=== PATIENT | female | born 1945 | race Caucasian/White ===

== ENCOUNTER → 2016-05-26 | Outpatient (CLI) | payer MEDICARE, BC ==
[2016-05-26 10:02] LABS: Basophils # (A) 0.1 k/uL (0-0.2); Basophils % (A) 2 %; CH 31.3; CHCM 33.4; Eosinophils # (A) 0.2 k/uL (0-0.7); Eosinophils % (A) 6 %; HCT 43.4 % (34.0-46.0); HGB 14.4 gm/dL (11.4-16.0); Luc # (Auto) 0.09; Luc % (Auto) 2; Lymphocytes # (A) 0.7 k/uL (1.0-4.8); Lymphocytes % (A) 19 %; MCH 31.2 pg (25.0-35.0); MCHC 33.1 g/dL (31.0-37.0); MCV 94.2 fL (80.0-100.0); Mean Platelet Volume 7.5; Monocytes # (A) 0.3 k/uL (0-1.0); Monocytes % (A) 7 %; Neutrophils # (A) 2.6 k/uL (1.3-7.7); Neutrophils % (A) 65 %; RBC 4.61 m/uL (3.80-5.40); RDW 12.3 % (11.5-15.5)
[2016-05-26 10:15] LABS: Appearance,Urine Clear (Clear); Bilirubin,Urine Negative (Negative); Glucose,Urine (UA) Negative (Negative); Ketones,Urine Negative (Negative); Leukocyte Esterase,Urine Small (Negative); Nitrite,Urine Negative (Negative); PH, Urine 7.5 (5.0-8.0); Particle Count 949; Protein,Urine Negative (Negative); RBC,Urine 21 /hpf (0-5); Specific Gravity,Urine 1.009 (1.001-1.035); UA Billing (MACRO vs. MICRO) MICRO; Urobilinogen,Urine <2.0 mg/dL (<2.0); WBC,Urine 1 /hpf (0-5)
[2016-05-26 10:31] LABS: ALT 32 U/L (9-52); AST 25 U/L (14-36); Alkaline Phosphatase 59 U/L (38-126); Anion Gap 10 mmol/L; Blood Urea Nitrogen 18 mg/dL (7-17); Calcium 9.6 mg/dL (8.4-10.2); Carbon Dioxide 30 mmol/L (22-30); Chloride 106 mmol/L (98-107); Cholesterol 195 mg/dL (<200); Glucose 84 mg/dL (74-99); HDL Cholesterol 62 mg/dL (40-60); Non-African American GFR(MDRD) 51 (>60 ml/min/1.73 sqM); Potassium 4.7 mmol/L (3.5-5.1); Sodium 146 mmol/L (137-145); Total Bilirubin 0.6 mg/dL (0.2-1.3); Total Protein 7.2 g/dL (6.3-8.2); Triglycerides 128 mg/dL (<150)
== END | disposition home or self-care (01) ==
LOC: LABWHC1 09:31
PROVIDERS: ATTEND Family Medicine
DX: E78.5 Hyperlipidemia, unspecified (principal); E55.9 Vitamin D deficiency, unspecified; I10 Essential (primary) hypertension
CPT/HCPCS: 36415; 80053; 80061; 81001; 82306; 85025

== ENCOUNTER 2016-06-19 11:53 | Emergency (ER) | payer MEDICARE, BC ==
--- NOTE | 2016-06-19 13:19 | ED ---
General Adult HPI - General Chief complaint: Skin/Abscess/Foreign Body Stated complaint: RT RING FINGER SWELLING Time Seen by Provider: 06/19/16 13:05 Source: patient, RN notes reviewed Mode of arrival: ambulatory Limitations: no limitations - History of Present Illness Initial comments: Patient is a 71-year-old female presents to the emergency room for evaluation of right ring finger swelling. Patient states that she punctured her finger while moving a cactus about 10 days ago. Patient states she's not sure where she punctured her finger. Patient states for the past 4 or 5 days her right ring finger began swelling. Patient denies any injury besides the possible puncture wound. Patient denies any visible puncture wound. Patient denies numbness or tingling in the tip of her finger. Patient states she still has full range of motion. Patient states she is mostly having pain at her PIP joint. Patient denies any fevers or chills. Patient denies any other complaints at this time. - Related Data Previous Rx's Medication Instructions Recorded Cephalexin [Keflex] 500 mg PO Q6HR 7 Days 06/19/16 Allergies Allergy/AdvReac Type Severity Reaction Status Date / Time Penicillins Allergy Unknown Verified 06/19/16 12:48 Sulfa (Sulfonamide Allergy Unknown Verified 06/19/16 12:48 Antibiotics) Review of Systems ROS Statement: Those systems with pertinent positive or pertinent negative responses have been documented in the HPI. ROS Other: All systems not noted in ROS Statement are negative. Past Medical History Past Medical History: Atrial Fibrillation History of Any Multi-Drug Resistant Organisms: None Reported Past Surgical History: Pacemaker Past Psychological History: No Psychological Hx Reported Smoking Status: Never smoker Past Alcohol Use History: None Reported Past Drug Use History: None Reported General Exam - General Exam Comments Initial Comments: Sitting in exam room in no acute distress. Limitations: no limitations General appearance: alert, in no apparent distress Head exam: Present: atraumatic, normocephalic, normal inspection Eye exam: Present: normal appearance ENT exam: Present: normal exam Neck exam: Present: normal inspection Respiratory exam: Present: normal lung sounds bilaterally. Absent: respiratory distress Cardiovascular Exam: Present: regular rate, normal rhythm, normal heart sounds Right Hand Wrist exam: Present: full ROM, tenderness (PIP joint of the left fourth digit), swelling (Swelling at the PIP joint of the right fourth digit with slight erythema ) Neuro motor exam: Present: wrist extension intact, thumb opposition intact, thumb IP flexion intact, thumb adduction intact, fingers 2-5 abduction intact Vascular: Present: normal capillary refill (Capillary refill less than 2 seconds ), radial pulse (2+), ulnar pulse (2+) Back exam: Present: normal inspection Neurological exam: Present: alert, oriented X3, CN II-XII intact, normal gait Psychiatric exam: Present: normal affect, normal mood Skin exam: Present: warm, dry, intact, normal color. Absent: rash Course Vital Signs 06/19/16 06/19/16 12:45 14:03 Temperature 98.0 F 97.8 F Pulse Rate 59 L 87 Respiratory 18 16 Rate Blood Pressure 129/58 138/87 O2 Sat by Pulse 100 100 Oximetry Medical Decision Making - Medical Decision Making Patient is a 71-year-old female presents to the emergency room for evaluation of right fourth digit swelling and pain. Right hand x-ray shows no foreign bodies or fractures/dislocations. Patient does have some erythema overlying the PIP joint along with the swelling. Will place patient on Keflex for possible cellulitis and have patient follow-up with her primary care provider or workers compensation claims specialist for further evaluation. Patient states she understands everything that was discussed with her. Return parameters discussed. Case discussed with Dr. Galaviz. - Radiology Data Radiology results: report reviewed, image reviewed Disposition Clinical Impression: Finger joint swelling Disposition: HOME SELF-CARE Condition: Good Instructions: Swollen Joint (ED) Additional Instructions: Take antibiotics as directed. Please follow up with primary care provider or workers compensation claims specialist for reevaluation. Take Tylenol or Motrin as needed for pain. If any new symptom arises or symptoms worsen, return to ER as soon as possible. Prescriptions: Cephalexin [Keflex] 500 mg PO Q6HR 7 Days Referrals: Charleen Ford MD [Primary Care Provider] - 1-2 days Joey Prado MD [Medical Doctor] - 1-2 days Time of Disposition: 13:52
--- NOTE | 2016-06-19 13:32 | XR ---
EXAMINATION TYPE: XR hand complete RT DATE OF EXAM: 06/19/2016 1:21 PM CLINICAL HISTORY: Pain and swelling left ring finger after possible calculus injury. TECHNIQUE: Frontal, lateral and oblique images of the left hand are obtained. COMPARISON: None. FINDINGS: There is no acute fracture/dislocation evident in the left hand. Mild joint space loss thr oughout the phalanges is present. Mild to moderate focal soft tissue swelling centered at level of t he fourth PIP joint is noted. No obvious radiodense foreign body is present. IMPRESSION: Mild to moderate soft tissue swelling centered at fourth PIP joint without fracture or di slocation or obvious suspicious radiodense foreign body seen.
[2016-06-19 14:03] VITALS: BP 138/87; PULSE 87; RESP 16; TEMP 97.8
== END 2016-06-19 14:03 | disposition home or self-care (01) ==
LOC: EC 11:53
DX: M25.441 Effusion, right hand (principal); I48.91 Unspecified atrial fibrillation; Z95.0 Presence of cardiac pacemaker; Z88.0 Allergy status to penicillin; Z88.2 Allergy status to sulfonamides
CPT/HCPCS: 99283

== ENCOUNTER → 2016-08-25 | Outpatient (CLI) | payer MEDICARE, BC ==
--- NOTE | 2016-08-26 12:43 | MM ---
Reason for exam: screening (asymptomatic). Last mammogram was performed 1 year and 1 month ago. History: Patient is postmenopausal. Took estrogen for 34 years beginning at age 34. Physical Findings: A clinical breast exam by your physician is recommended on an annual basis and results should be correlated with mammographic findings. MG 3D Screening Mammo W/Cad Bilateral CC and MLO view(s) were taken. Prior study comparison: August 03, 2015, bilateral MG screening mammo w CAD. July 29, 2014, bilateral MG screening mammo w CAD. June 24, 2011, bilateral digital screening mammo w/CAD. There are scattered fibroglandular densities. Generator device over the left pectoral. No significant changes when compared with prior studies. ASSESSMENT: Negative, BI-RAD 1 RECOMMENDATION: Routine screening mammogram of both breasts in 1 year.
== END | disposition home or self-care (01) ==
LOC: RADMAMWWP 08:40
PROVIDERS: ATTEND Family Medicine
DX: Z12.31 Encounter for screening mammogram for malignant neoplasm of breast (principal)
CPT/HCPCS: 77063; G0202

== ENCOUNTER → 2017-02-04 | Outpatient (CLI) | payer MEDICARE, BC ==
[2017-02-04 09:42] LABS: CH 31.1; CHCM 32.1; HCT 46.7 % (34.0-46.0); HDW 2.51; HGB 15.1 gm/dL (11.4-16.0); MCH 31.4 pg (25.0-35.0); MCHC 32.4 g/dL (31.0-37.0); MCV 97.1 fL (80.0-100.0); Mean Platelet Volume 8.3; RBC 4.81 m/uL (3.80-5.40); RDW 12.5 % (11.5-15.5); WBC 4.3 k/uL (3.8-10.6)
[2017-02-04 09:48] LABS: Anion Gap 9 mmol/L; Blood Urea Nitrogen 24 mg/dL (7-17); Calcium 9.6 mg/dL (8.4-10.2); Carbon Dioxide 27 mmol/L (22-30); Chloride 106 mmol/L (98-107); Glucose 97 mg/dL (74-99); Non-African American GFR(MDRD) 53 (>60 ml/min/1.73 sqM); Potassium 4.7 mmol/L (3.5-5.1); Sodium 142 mmol/L (137-145)
== END | disposition home or self-care (01) ==
LOC: LABWHC1 08:30
PROVIDERS: ATTEND Internal Medicine Clinical Cardiac Electrophysiology
DX: I48.0 Paroxysmal atrial fibrillation (principal)
CPT/HCPCS: 36415; 80048; 85027

== ENCOUNTER 2017-02-07 11:25 | Day surgery (SDC) | payer MEDICARE, BC ==
[2017-02-03 17:49] VITALS: BMI 24.0
[~2017-02-07 11:25] MED LIST: SODIUM CHLORIDE 0.9% 1,000 ML IV SCH; VANCOMYCIN 2,000 MG in SODIUM CHLORIDE 0.9% 500 ML IVPB ONE
[2017-02-07] MEDS ORDERED: SODIUM CHLORIDE 0.9% 500 ML IV ONE (11:47)
[2017-02-07 12:54] LABS: INR 3.3 (<1.2); Prothrombin Time 32.1 sec (9.0-12.0)
[2017-02-07] MEDS ORDERED: VANCOMYCIN 1,000 MG VIAL IVPB ONE (13:31)
[2017-02-07] MEDS ORDERED: GENTAMICIN 120 MG in SODIUM CHLORIDE 0.9% 100 ML IVPB ONE (16:17)
[2017-02-07] MEDS ORDERED: fentaNYL (PF) 50 MCG/ML 2 ML AMP ONE (18:09)
[2017-02-07] MEDS: fentaNYL (PF) 50 MCG/ML 2 ML AMP IV ONE ×2 (18:13→18:51)
[2017-02-07] MEDS ORDERED: LIDOCAINE 1% INJ 10MG/ML (20 ML MDV) SQ ONE ×2 (18:20→18:33)
[2017-02-07] MEDS ORDERED: MIDAZOLAM 2 MG/2 ML VIAL ONE (18:22)
[2017-02-07] MEDS: MIDAZOLAM 2 MG/2 ML VIAL IV ONE ×2 (18:24→18:52)
[2017-02-07] MEDS ORDERED: ACETAMINOPHEN IV (For NPO) 1,000 MG in EMPTY BAG 1 BAG IVPB ONE (19:12)
[2017-02-07] MEDS ORDERED: ACETAMINOPHEN TAB 325 MG TAB PO PRN (19:12)
--- NOTE | 2017-02-07 19:18 | P.PCN ---
Preoperative Diagnosis: Patient underwent EP procedure under conscious sedation/moderate sedation, monitoring of the level of consciousness and physiologic parameters including but not limited to vital signs and oxygenation. Patient tolerated the procedure well without any acute complications. Start time: 1818 Stop time: 1904
[2017-02-07 19:54] VITALS: RESP 16
--- NOTE | 2017-02-07 20:07 | PCN ---
PROCEDURE NOTE Mrs. Hamm is a 71-year-old female with known sick sinus syndrome and paroxysmal atrial fibrillation, symptomatic, status post atrial fibrillation ablation almost 7 years back. Her device is at [facility]. She was brought in for a dual-chamber pacemaker generator change. The patient was brought to the EP lab in a fasting state. Written informed consent was obtained prior to the procedure. IV vancomycin 2 grams and IV gentamicin 120 mg were administered. The left pectoral area was prepped and draped as per protocol. Lidocaine 1% was used for local anesthesia. An incision was made directly over the previous surgical site and carried down to the level of the generator. The generator was explanted. A partial capsulectomy was performed. Hemostasis was assured. The new generator was implanted. Leads were interrogated. The old generator was a [employer] device, serial number [id number]. It was originally implanted on 09/07/2009. The new device implanted was a [employer] DR pacemaker, model number L111, serial number [id number]. The P waves were 2.7 mV, pacing impedance 510 ohms. Pacing thresholds were about 4 v at 0.4 Ms. R waves were 18.7 mV, pacing impedance 548 ohms, pacing threshold 1 v at 0.4 ms. The generator was then placed in the subfascial pocket. Wound was closed in 3 layers and dressed per protocol. RESULT: Successful dual-chamber pacemaker implantation under conscious sedation. Please see separate dictation for partial sedation. MMODL / IJN: [id number] /
[2017-02-07] MEDS: HYDROcodone/APAP 5-325MG 1 EACH TAB PO PRN (20:49)
[2017-02-07] MEDS ORDERED: ALPRAZolam 0.25 MG TAB PO SCH (21:00)
[2017-02-07] MEDS ORDERED: METOPROLOL SUCCINATE (ER) 25 MG TAB.ER.24H PO SCH (21:00)
[2017-02-08] MEDS: HYDROcodone/APAP 5-325MG 1 EACH TAB PO PRN (03:53)
[2017-02-08] MEDS ORDERED: VANCOMYCIN 1,250 MG in SODIUM CHLORIDE 0.9% 250 ML IVPB SCH (06:00)
[2017-02-08 07:40] VITALS: BP 110/64; PULSE 57; TEMP 97.6
--- NOTE | 2017-02-08 08:21 | P.DS ---
Providers Attending physician: Artie Velez Primary care physician: [facility] Course: Patient is doing well. The pacemaker generator change site is sore there is no hematoma, mild soakage noted to she's afebrile 98.6F pulse rate is in the 50s and 60s, blood pressure 110/64 mmHg pulse ox 98%. Breath sounds are clear no rhonchi no crackles Heart sounds S1 and S2 are normal Abdomen soft nontender Pacemaker site does not show any hematoma Impression Symptomatic sick sinus syndrome status post permanent pacemaker, pacemaker generator at [facility] status post pacemaker generator change yesterday Paroxysmal atrial fibrillation, symptomatic status post A. fib ablation, no recurrences of sustained A. fib Plan Hold Coumadin for 4 days. She will start Coumadin on Monday. Pacemaker device check and wound check on Monday next week, follow-up with Dr. Verdugo in 6 months Patient Condition at Discharge: Stable Plan - Discharge Summary New Discharge Prescriptions: No Action Cyanocobalamin [Vitamin B-12] 500 mcg PO HS RX: Biotin 5,000 mcg PO HS Warfarin [Coumadin] 5 mg PO MOTH L.acidoph,Paracasei, B.lactis [Probiotic] 1 each PO HS RX: ALPRAZolam [Xanax] 0.25 mg PO HS Warfarin Sodium [Warfarin Sodium] 2.5 mg PO SUTUWEFRSA Metoprolol Succinate [Toprol XL] 25 mg PO HS Calcium/Magnesium/Zinc [Hjkcdbp-Meepbxzod-Jqrc Tablet] 1 each PO HS Discharge Medication List Calcium/Magnesium/Zinc [Kvgnnvn-Idsszummg-Aasp Tablet] 1 each PO HS 02/03/17 [ History] Cyanocobalamin [Vitamin B-12] 500 mcg PO HS 02/03/17 [History] L.acidoph,Paracasei, B.lactis [Probiotic] 1 each PO HS 02/03/17 [History] Metoprolol Succinate [Toprol XL] 25 mg PO HS 02/03/17 [History] RX: ALPRAZolam [Xanax] 0.25 mg PO HS 02/03/17 [History] RX: Biotin 5,000 mcg PO HS 02/03/17 [History] Warfarin Sodium [Warfarin Sodium] 2.5 mg PO SUTUWEFRSA 02/03/17 [History] Warfarin [Coumadin] 5 mg PO MOTH 02/03/17 [History] Activity/Diet/Wound Care/Special Instructions: PATIENT EDUCATION MATERIAL Instructions following a heart rhythm device implant. 1. Keep dressing DRY for ONE week. You may cover the area with Saran or Cling Wrap, prior to a shower. 2. The dressing will be removed after one week in the Device Clinic @ [facility]. Absorbable sutures were used to close the wound. 3. Avoid raising the [left] arm above the shoulder level. [1 week restriction] 4. Avoid arm movements, like backscratching, rubbing the head, or pulling on a cord. (1 weeks restriction) 5. Gentle range of motion movements of the shoulder, closest to the incision should be performed to avoid a frozen shoulder. (Pendulum exercises of the shoulder) 6. The opposite arm may be used freely. 7. Avoid driving for 7 days. 8. Avoid activities such as golfing, swimming, weed whacking, lifting more than 10 pounds weight, bowling, gymnastics and weight training/lifting. (1 weeks restriction) 9. Activities such as wood chopping with an axe, pull-ups in the gymnasium, power lifting, arc-welding, being close to home induction cooktops will always be a problem. In case of any problems, please call [facility], [place], @ [phone], Attention: Device Clinic Hold Coumadin/warfarin for 4 days. Restart after 4 days
== END 2017-02-08 10:50 | disposition home or self-care (01) ==
LOC: CATHEP 11:25 → 3OBS 19:05 → CATHEP 02-08 10:50
PROVIDERS: ATTEND Internal Medicine Clinical Cardiac Electrophysiology
DX: I49.5 Sick sinus syndrome (principal); Z45.010 Encounter for checking and testing of cardiac pacemaker pulse generator [battery]; I48.0 Paroxysmal atrial fibrillation; Z79.01 Long term (current) use of anticoagulants; I65.23 Occlusion and stenosis of bilateral carotid arteries; Z87.891 Personal history of nicotine dependence; Z79.899 Other long term (current) drug therapy; Z88.0 Allergy status to penicillin; Z88.2 Allergy status to sulfonamides
CPT/HCPCS: 33228; 85610; C1785; J2250; J3370 ×2; J2001; J3010; J1580

== ENCOUNTER → 2017-09-13 | Outpatient (CLI) | payer MEDICARE, BC ==
--- NOTE | 2017-09-13 12:00 | MM ---
Reason for exam: screening (asymptomatic). Last mammogram was performed 1 year and 1 month ago. History: Patient is postmenopausal. Took estrogen for 34 years beginning at age 34. Physical Findings: A clinical breast exam by your physician is recommended on an annual basis and results should be correlated with mammographic findings. MG Screening Mammo w CAD Bilateral CC and MLO view(s) were taken. Prior study comparison: August 25, 2016, bilateral MG 3d screening mammo w/cad. August 03, 2015, bilateral MG screening mammo w CAD. There are scattered fibroglandular densities. Finding: There are typically benign round calcifications in both breasts. There is no discrete abnormality. Left axillary pacemaker redemonstrated. ASSESSMENT: Benign, BI-RAD 2 RECOMMENDATION: Routine screening mammogram of both breasts in 1 year.
== END | disposition home or self-care (01) ==
LOC: RADMAMWWP 07:11
PROVIDERS: ATTEND Family Medicine
DX: Z12.31 Encounter for screening mammogram for malignant neoplasm of breast (principal)
CPT/HCPCS: 77067

== ENCOUNTER 2018-03-27 17:49 | Emergency (ER) | payer MEDICARE, BC ==
[2018-03-27 19:36] VITALS: TEMP 98
[2018-03-27] MEDS ORDERED: HYDROcodone/APAP 5-325MG 1 EACH TAB PO STA (20:33)
--- NOTE | 2018-03-27 22:16 | ED ---
General Adult HPI - General Source: patient, RN notes reviewed, old records reviewed Mode of arrival: ambulatory Limitations: no limitations <Mehdi Mike - Last Filed: 03/29/18 19:34> <Alison Rico - Last Filed: 04/02/18 03:24> - General Chief complaint: Extremity Injury, Upper Stated complaint: Poss broke wrist - History of Present Illness Initial comments: 73-year-old female patient presents to ED after mechanical fall injuring her left wrist. Patient [place] in [place], [place] with her . When she tripped on some brush, had FOOSH to left wrist. Patient denies trauma to head/neck, loss of consciousness. Patient is on anticoagulation for atrial fibrillation. Patient denies injury to any other extremity. Patient is ambulatory. Patient denies loss of consciousness, headache, changes in vision, chest pain, shortness of breath, abdominal pain, nausea vomiting diarrhea, fever chills, or any other new symptoms. Systemic: Pt denies fatigue, myalgia, fever/chills, rash. Pt denies weakness, night sweats, weight loss. Neuro: Pt denies headache, visual disturbances, syncope or pre-syncope. HEENT: Pt denies ocular discharge or irritation, otalgia, rhinorrhea, pharyngitis or notable lymphadenopathy. Cardiopulmonary: Pt denies chest pain, SOB, heart palpitations, dyspnea on exertion. Abdominal/GI: Pt denies abdominal pain, n/v/d. : Pt denies dysuria, burning w/ urination, frequency/urgency. Denies new onset urinary or bowel incontinence. MSK: Pt denies myalgia, paresthesias, loss of strength in extremities. (Mehdi Mike) - Related Data Home Medications Medication Instructions Recorded Confirmed ALPRAZolam [Xanax] 0.25 mg PO HS 02/03/17 02/07/17 Biotin 5,000 mcg PO HS 02/03/17 02/07/17 Calcium/Magnesium/Zinc 1 each PO HS 02/03/17 02/07/17 [Nbkpxqz-Vhuwwjadw-Vzxz Tablet] Cyanocobalamin [Vitamin B-12] 500 mcg PO HS 02/03/17 02/07/17 L.acidoph,Paracasei, B.lactis 1 each PO HS 02/03/17 02/07/17 [Probiotic] Metoprolol Succinate [Toprol XL] 25 mg PO HS 02/03/17 02/07/17 Warfarin Sodium 2.5 mg PO SUTUWEFRSA 02/03/17 02/07/17 Warfarin [Coumadin] 5 mg PO MOTH 02/03/17 02/07/17 Allergies Allergy/AdvReac Type Severity Reaction Status Date / Time Penicillins Allergy Swelling Verified 03/27/18 19:37 Sulfa (Sulfonamide Allergy Swelling Verified 03/27/18 19:37 Antibiotics) clindamycin AdvReac INDIGESTION Verified 03/27/18 19:37 Review of Systems ROS Other: All systems not noted in ROS Statement are negative. <Mehdi Mike - Last Filed: 03/29/18 19:34> ROS Other: All systems not noted in ROS Statement are negative. <Alison Rico P - Last Filed: 04/02/18 03:24> ROS Statement: Those systems with pertinent positive or pertinent negative responses have been documented in the HPI. Past Medical History Past Medical History: Atrial Fibrillation, Asthma Additional Past Medical History / Comment(s): OCC ASTHMA. SEE H&P. History of Any Multi-Drug Resistant Organisms: None Reported Past Surgical History: Hysterectomy, Pacemaker Additional Past Surgical History / Comment(s): [employer] PACEMAKER Past Anesthesia/Blood Transfusion Reactions: No Reported Reaction Type of Cardiac Device: Permanent Pacemaker Device Placement Date:: 2009 Past Psychological History: No Psychological Hx Reported Smoking Status: Former smoker Past Alcohol Use History: Rare Past Drug Use History: None Reported - Past Family History Mother Family Medical History: No Reported History <Mehdi Mike - Last Filed: 03/29/18 19:34> General Exam Limitations: no limitations <Mehdi Mike - Last Filed: 03/29/18 19:34> <Alison Rico P - Last Filed: 04/02/18 03:24> - General Exam Comments Initial Comments: Constitutional: NAD, AOX3, Pt has pleasant affect. HEENT: NC/AT, trachea midline, neck supple, no lymphadenopathy. Posterior pharynx non erythematous, without exudates. External ears appear normal, without discharge. Mucous membranes moist. Eyes PERRLA, EOM intact. There is no scleral icterus. No pallor noted. Cardiopulmonary: RRR, no murmurs, rubs or gallops, no JVD noted. Lungs CTAB in anterior and posterior callejas. No peripheral edema. Abdominal exam: Abdomen soft and non-distended. Abdomen non-tender to palpation in all 4 quadrants. Bowel sounds active in LLQ. No hepatosplenomegaly. Neuro: CN II-XII intact. Eyes PERRLA. Extraocular movements intact. Patient has full active range of motion in upper and lower extremities, full sensation. No facial droop, no focal deficit. MSK: Patient has limited flexion/extension at left wrist secondary to pain, patient has limited ulnar/radial deviation of left wrist due to pain. Patient has pain to palpation at left distal radius. Radial pulse +2 bilaterally patient hands sensation intact bilaterally. Capillary refill less than 2 seconds bilaterally. No cervical spinal tenderness or paraspinal tenderness. Patient has full active range of motion of neck. No thoracic or lumbar tenderness or apparent spinal tenderness. Patient ambulatory, heel to toe walking intact. Extensive muscle skeletal exam palpating all joints and extremities did not reveal any other acute injury. (Mehdi Mike) Vital Signs 03/27/18 03/27/18 19:32 23:43 Temperature 98.0 F Pulse Rate 71 66 Respiratory 18 16 Rate Blood Pressure 149/81 153/78 O2 Sat by Pulse 100 96 Oximetry Medical Decision Making <Mehdi Mike - Last Filed: 03/29/18 19:34> <Alison Rico - Last Filed: 04/02/18 03:24> - Medical Decision Making 72-year-old female patient presents to ED with mechanical fall. Patient suffered left wrist injury. Patient had no other complaints. Neurological exam was within normal limits. Cardiopulmonary, abdominal, HEENT exam did not display acute pathology. Muscular skeletal exam displayed tender left distal radius. Plain film displayed fracture of left distal radius. Patient placed in thumb spica, radial gutter splint. Patient given referral for orthopedic surgeon that she will call in the morning. Patient to follow-up with PCP in 1- 2 days. Patient to return to ED if any new signs or symptoms develop including , worsening wrist pain, paresthesias, loss sensation, chest pain, shortness of breath, or any other new symptoms. Pt driving home. Case discussed with Dr. Rico. (Mehdi Mike) I was available for consultation in the emergency department. The history and physical exam were done by the midlevel provider. I was consulted for this patient's care. I reviewed the case with the midlevel provider and based on their presentation of the patient, I agree with the assessment, medical decision making and plan of care as documented. (Alison Rico) Disposition Is patient prescribed a controlled substance at d/c from ED?: No Time of Disposition: 23:32 <Mehdi Mike - Last Filed: 03/29/18 19:34> <Alison Rico - Last Filed: 04/02/18 03:24> Clinical Impression: Radius fracture Disposition: HOME SELF-CARE Condition: Good Instructions: Wrist Fracture in Adults (ED) Additional Instructions: Patient to adhere to previously discussed treatment plan and will take medication(s) as directed. Patient to follow up with PCP in 1-2 days. Patient to return to ED if symptoms do not improve. Referrals: Charleen Ford MD [Primary Care Provider] - 1-2 days Coy Eagle DO [Doctor of Osteopathic Medicine] - 1-2 days
--- NOTE | 2018-03-27 22:43 | XR ---
PROCEDURE: XR wrist complete LT 3V DATE AND TIME: 03/27/2018 8:04 PM CLINICAL INDICATION: Injury, pain TECHNIQUE: Department protocol. 3V COMPARISON: None FINDINGS: There is a mildly-displaced, apex-dorsal transverse fracture of the distal radius which vaishali ears to involve the DRUJ but not radiocarpal joint. There is associated soft tissue swelling. No other fractures. IMPRESSION: LEFT RADIUS FRACTURE.
[2018-03-27] MEDS ORDERED: ACET/COD 300 MG/30 MG STARTER PACK 6 TAB BTL PO STA (23:31)
[2018-03-27 23:44] VITALS: BP 153/78; PULSE 66; RESP 16
== END 2018-03-27 23:43 | disposition home or self-care (01) ==
LOC: EC 17:49
DX: S52.502A Unspecified fracture of the lower end of left radius, initial encounter for closed fracture (principal); I48.91 Unspecified atrial fibrillation; Z95.0 Presence of cardiac pacemaker; Z87.891 Personal history of nicotine dependence; Z79.01 Long term (current) use of anticoagulants; Z79.899 Other long term (current) drug therapy; Z88.0 Allergy status to penicillin; Z88.1 Allergy status to other antibiotic agents; Z88.2 Allergy status to sulfonamides; W01.0XXA Fall on same level from slipping, tripping and stumbling without subsequent striking against object, initial encounter; Y93.01 Activity, walking, marching and hiking
CPT/HCPCS: 29125; 99284

== ENCOUNTER → 2018-05-04 | Outpatient (CLI) | payer MEDICARE, BC ==
[2018-05-04 12:22] LABS: HCT 45.6 % (34.0-46.0); HGB 14.4 gm/dL (11.4-16.0); MCH 29.8 pg (25.0-35.0); MCHC 31.7 g/dL (31.0-37.0); MCV 93.9 fL (80.0-100.0); Mean Platelet Volume 8.3; Platelet Count 160 k/uL (150-450); RBC 4.85 m/uL (3.80-5.40); RDW 12.8 % (11.5-15.5); WBC 4.4 k/uL (3.8-10.6)
[2018-05-04 16:05] LABS: Albumin 4.2 g/dL (3.80-4.90); Albumin/Globulin Ratio 1.91 (1.20-2.10); Anion Gap 10.9 mmol/L (4.00-12.00); Calcium 9.3 mg/dL (8.7-10.3); Carbon Dioxide 25.1 mmol/L (21.6-31.8); Globulin 2.2 g/dL (1.6-3.3); LDL Cholesterol,Calculated 121.2 mg/dL (0.0-131.0); Potassium 4.6 mmol/L (3.5-5.5); Total Bilirubin 0.5 mg/dL (0.2-1.2); Total Protein 6.4 g/dL (6.2-8.2); VLDL Calculation 40.8 mg/dL (5.00-40.00)
[2018-05-04 20:18] LABS: Hemoglobin A1C 5.4 % (4.0-6.0)
== END | disposition home or self-care (01) ==
LOC: LABWHC1 10:35
PROVIDERS: ATTEND Family Medicine
DX: E78.5 Hyperlipidemia, unspecified (principal); Z79.899 Other long term (current) drug therapy
CPT/HCPCS: 36415; 80053; 80061; 82550; 83036; 85027

== ENCOUNTER → 2018-06-07 | Outpatient (CLI) | payer MEDICARE, BC ==
--- NOTE | 2018-06-07 10:14 | CTL ---
EXAMINATION TYPE: CT Low Dose Lung DATE OF EXAM ORDERED: 06/07/2018 HISTORY: Personal history tobacco use. Lung cancer screening CT DLP: [address] CTDI: 2.22 mGy Automated exposure control for dose reduction was used. SCREENING VISIT: 1 COMPARISON: Chest CT 05/14/2003 TECHNIQUE: Low dose computed tomography scan was performed through the chest at 1 mm thick sections a nd reconstructed images in the coronal plane at [address] DIAGNOSTIC QUALITY: Satisfactory FINDINGS: LUNG NODULES: Present, detailed below: Axial image #42 shows a calcified nodule in the left upper lobe which is punctate in size. LUNGS: COPD: Severity: Mild to moderate Fibrosis: Severity: None Lymph nodes: None measured enlarged Other findings: RIGHT PLEURAL SPACE: Effusion: None Calcification: None Thickening: Present apically Pneumothorax: None LEFT PLEURAL SPACE: Effusion: None Calcification: None Thickening: Present apically Pneumothorax: None HEART: Heart Size: Normal Coronary calcification: Present in a mild amount Pericardial effusion: None OTHER FINDINGS: Upper abdomen: Unremarkable Bony thorax: Thoracic spondylosis is present. Supraclavicular region: Unremarkable Other: Leads are present in the right atrium and ventricle, generator in the left pectoral region IMPRESSION: Benign FOLLOW UP CT CHEST RECOMMENDATION: Follow-up [address] LUNG RAD: Lung-Rad 2 Benign Appearance or Behavior
== END | disposition home or self-care (01) ==
LOC: RADCTMAIN 07:16
PROVIDERS: ATTEND Family Medicine
DX: Z12.2 Encounter for screening for malignant neoplasm of respiratory organs (principal); Z87.891 Personal history of nicotine dependence

== ENCOUNTER → 2019-02-19 | Outpatient (CLI) | payer MEDICARE, BC | END | disposition home or self-care (01) | LOC: CPPFTMAIN 09:59 | PROVIDERS: ATTEND Family Medicine | DX: J45.30 Mild persistent asthma, uncomplicated (principal) | CPT/HCPCS: 94010; 94726; 94729 ==

== ENCOUNTER → 2019-11-01 | Outpatient (CLI) | payer MEDICARE, BC ==
--- NOTE | 2019-11-01 16:23 | CT ---
EXAMINATION TYPE: CT urogram wo/w con DATE OF EXAM: 11/01/2019 COMPARISON: None HISTORY: 74-year-old female abnormal urine cytology. Hematuria. UTI. TECHNIQUE: Contiguous axial scanning of the abdomen and pelvis performed without and with IV Contrast , patient injected with 80 mL of Isovue M300. Delayed images through the kidneys and bladder were obt ained. Coronal/sagittal reconstructions performed. 3-D reconstructions generated on a dedicated [email or web address] workstation. CT DLP: 1173 mGycm Automated exposure control for dose reduction was used. FINDINGS: Heart normal size without pericardial effusion. Right atrial and right ventricular pacer leads are de monstrated. Some strandy atelectasis in the lower lungs without pleural effusion. Small hiatal hernia. Small amount of focal fat along the anterior falciform ligament. Portal venous system is patent. No b iliary ductal dilatation. Gallbladder, adrenal glands, spleen, and pancreas appear within normal limits. Moderate atherosclerotic plaque and calcifications throughout the abdominal aorta and iliac arteries. There is some fusiform ectasia up to 2.4 cm along these infrarenal portion but no josh aneurysm. Se gmental moderate atherosclerotic narrowing within the left common iliac artery. Evaluation of the kidneys shows a 2.6 cm anterior cyst on the right. 2 additional lesions measuring 1 .2 and 0.8 cm and the right kidney are too small for accurate CT characterization but also likely rep resent cysts. Left kidney shows a 1.8 cm benign cyst. No suspicious kidney lesion is identified. No nephrolithiasis. Symmetric uptake and excretion of contrast from the kidneys. No suspicious fillin g defects seen within the renal collecting systems. The distalmost right ureter is not seen opacified and this limits its evaluation. No abnormal soft tissue thickening is identified in this region. No dilated small bowel, free fluid, or free air. Mild stool burden. Left-sided clonic diverticulosis without pericolonic inflammatory change. Mild circumferential bladder wall thickening. On the delayed scan, the posterior half of the bladder is opacified with excreted contrast and shows no suspicious mural-based nodularity. Assessment of the urothelium of the anterior half of the bladder is limited. Uterus surgically absent. Neither ovary clearly identified. No abnormal fluid collection the pelvis o r pelvic lymphadenopathy. Bones: Moderate degenerative disc disease L4-L5 and L5-S1 along with facet arthropathy lower lumbar s pine. IMPRESSION: 1. BILATERAL RENAL CYSTS. TWO LESIONS IN THE RIGHT KIDNEY MEASURING 1.2 AND 0.8 CM ARE TOO SMALL FOR ACCURATE CT CHARACTERIZATION BUT ALSO LIKELY REPRESENT CYSTS. 2. NO HYDRONEPHROSIS, NEPHROLITHIASIS, SUSPICIOUS RENAL MASS, OR ABNORMAL FILLING DEFECT WITHIN THE C OLLECTING SYSTEMS. ONLY THE DISTALMOST RIGHT URETER REMAINS NONOPACIFIED AND IS NOT FULLY ASSESSED. N O OBVIOUS ABNORMALITY SEEN HERE. THE REMAINDER OF THE BILATERAL URETERS APPEAR CLEAR. 3. MILD CIRCUMFERENTIAL BLADDER WALL THICKENING COULD REPRESENT CYSTITIS. 4. LEFT-SIDED COLONIC DIVERTICULOSIS AND SMALL HIATAL HERNIA.
== END | disposition home or self-care (01) ==
LOC: RADCTMAIN 14:41
PROVIDERS: ATTEND Family Medicine
DX: N28.1 Cyst of kidney, acquired (principal); N32.89 Other specified disorders of bladder; K44.9 Diaphragmatic hernia without obstruction or gangrene; K57.30 Diverticulosis of large intestine without perforation or abscess without bleeding; R82.89 Other abnormal findings on cytological and histological examination of urine; R31.9 Hematuria, unspecified
CPT/HCPCS: 82565; 84520; 74178; 36415; 74400; Q9967

== ENCOUNTER → 2019-12-12 | Outpatient (CLI) | payer MEDICARE, BC ==
[2019-12-12 10:57] LABS: Basophils # (A) 0.1 k/uL (0-0.2); Basophils % (A) 2 %; Eosinophils # (A) 0.3 k/uL (0-0.7); Eosinophils % (A) 9 %; HCT 46.7 % (34.0-46.0); HGB 14.6 gm/dL (11.4-16.0); Lymphocytes # (A) 1.1 k/uL (1.0-4.8); Lymphocytes % (A) 27 %; MCH 30.2 pg (25.0-35.0); MCHC 31.3 g/dL (31.0-37.0); MCV 96.6 fL (80.0-100.0); Monocytes # (A) 0.3 k/uL (0-1.0); Monocytes % (A) 8 %; Neutrophils # (A) 2.1 k/uL (1.3-7.7); Neutrophils % (A) 52 %; Platelet Count 164 k/uL (150-450); RBC 4.84 m/uL (3.80-5.40); RDW 12.9 % (11.5-15.5)
[2019-12-12 17:39] LABS: African American GFR (CKD) 57.3 (60.0-200.0); Albumin 4.2 g/dL (3.80-4.90); Albumin/Globulin Ratio 1.56 (1.60-3.17); BUN/Creat Ratio 17.27 Ratio (12.00-20.00); Chol/HDL Ratio 2.42; Globulin 2.7 g/dL (1.6-3.3); LDL Cholesterol,Calculated 71.2 mg/dL (0.0-131.0); Non-African American GFR(CKD) 49.4 (60.0-200.0); Potassium 4.6 mmol/L (3.5-5.5); Total Bilirubin 0.7 mg/dL (0.2-1.2); Total Protein 6.9 g/dL (6.2-8.2); VLDL Calculation 16.8 mg/dL (5.00-40.00)
[2019-12-12 18:09] LABS: Hemoglobin A1C 5.3 % (4.0-6.0)
[2019-12-12 19:57] LABS: INR 1.67 (0.90-1.11); Prothrombin Time 17.5 sec (9.9-11.9)
== END | disposition home or self-care (01) ==
LOC: LABWHC1 10:16
PROVIDERS: ATTEND Family Medicine
DX: Z00.00 Encounter for general adult medical examination without abnormal findings (principal); I10 Essential (primary) hypertension; I48.91 Unspecified atrial fibrillation; Z79.899 Other long term (current) drug therapy; E78.5 Hyperlipidemia, unspecified
CPT/HCPCS: 36415; 80053; 80061; 82550; 83036; 84443; 85025; 85610

== ENCOUNTER → 2019-12-23 | Outpatient (CLI) | payer MEDICARE, BC ==
--- NOTE | 2019-12-23 13:55 | CTL ---
EXAMINATION TYPE: CT Low Dose Lung DATE OF EXAM ORDERED: 12/23/2019 HISTORY: . Lung cancer screening CT DLP: 79.[address] CTDI: 2.4 mGy Automated exposure control for dose reduction was used. SCREENING VISIT: Subsequent COMPARISON: 06/07/2018 TECHNIQUE: Low dose computed tomography scan was performed through the chest at 1 mm thick sections a nd reconstructed images in the coronal plane at [address] DIAGNOSTIC QUALITY: Satisfactory FINDINGS: LUNG NODULES: Present, detailed below: There is a punctate 0.2 cm density anterior left apex. Series 4 image 34. LUNGS: COPD: Severity: None Fibrosis: Severity: None Lymph nodes: None Other findings: None RIGHT PLEURAL SPACE: Effusion: None Calcification: None Thickening: None Pneumothorax: None LEFT PLEURAL SPACE: Effusion: None Calcification: None Thickening: None Pneumothorax: None HEART: Heart Size: Normal Coronary calcification: Mild Pericardial effusion: None OTHER FINDINGS: Upper abdomen: Normal Bony thorax: Normal Supraclavicular region: Normal Other: Ascending thoracic aorta at the level the main pulmonary artery measures 3.4 cm. The main pul monary artery at the bifurcation measures 2.7 cm. IMPRESSION: 1. Benign findings FOLLOW UP CT CHEST RECOMMENDATION: Follow-up [address] LUNG RAD: 2
== END | disposition home or self-care (01) ==
LOC: RADCTMAIN 06:52
PROVIDERS: ATTEND Family Medicine
DX: Z12.2 Encounter for screening for malignant neoplasm of respiratory organs (principal); Z87.891 Personal history of nicotine dependence

== ENCOUNTER → 2020-02-24 | Outpatient (CLI) | payer MEDICARE, BC ==
[2020-02-24 09:27] LABS: Calcium 9.4 mg/dL (8.4-10.2); Magnesium 1.9 mg/dL (1.6-2.3); Phosphorus 3.3 mg/dL (2.5-4.5); Potassium 4.5 mmol/L (3.5-5.1); Total Bilirubin 0.5 mg/dL (0.2-1.3); Total Protein 7.1 g/dL (6.3-8.2); Uric Acid 7.4 mg/dL (3.7-7.4)
[2020-02-24 09:45] LABS: INR 2.7 (<1.2); Prothrombin Time 26.6 sec (9.0-12.0)
[2020-02-24 17:52] LABS: % Iron Saturation 11.56 (12.00-45.00)
[2020-02-24 18:03] LABS: Ferritin 157.9 ng/mL (10.0-291.0)
--- NOTE | 2020-02-24 18:41 | BD ---
EXAMINATION TYPE: Axial Bone Density DATE OF EXAM: 02/24/2020 COMPARISON: NONE CLINICAL HISTORY: Postmenopausal screening Height: 5 FT 5 IN Weight: 150 FRAX RISK QUESTIONS: Alcohol (3 or more units per day): NO Family History (Parent hip fracture): NO Glucocorticoids (More than 3mos): NO (Ex: prednisone, prednisolone, methylprednisolone, dexamethasone, and hydrocortisone). History of Fracture in Adulthood: YES Secondary Osteoporosis: 1. Type 1 Diabetes: NO 2. Hyperthyroidism: NO 3. Menopause before 45: YES 4. Malnutrition: NO 5. Chronic liver disease: NO Rheumatoid Arthritis: NO Current Tobacco Use: NO RISK FACTORS HISTORY OF: History of Wrist Fracture: LEFT When: 2018 Family History of Osteoporosis: NO Active: YES Diet low in dairy products/other sources of calcium: NO Postmenopausal woman: TOTAL HYST AGE 34 Take estrogen and/or progesterone medications: TOOK HRT AGE [age] Lost more than 2 inches in height since high school: NO Poor Health: NO MEDICATIONS: Additional Medications: WARFARIN, MONTELUKAST , METOPROLOL, VIT D3, XANAX AT NIGHT Additional History: PACEMAKER AND ASTHMA EXAM MEASUREMENTS: Bone mineral densitometry was performed using the [employer]. Bone mineral density as measured about the Lumbar spine is: ----- L1-L4(G/cm2): 1.127 T Score Values are as follows: ----- L2: -0.9 ----- L3: 0.4 ----- L4: 0.4 ----- L1-L4: -0.4 Bone mineral density has: INCREASED 3.5 % since study of: 2015 Bone mineral density about the R hip (g/cm2): 0.789 Bone mineral density about the L hip (g/cm2): 0.782 T Score values are as follows: -----R Neck: -1.8 -----L Neck: -1.8 -----R Total: -1.5 -----L Total: -1.8 Bone mineral density has: DECREASED -4.8 % since study of: 2016 IMPRESSION: Osteopenia (T Score between -2.5 and -1). There is slightly increased risk of fracture and the patient may be considered for treatment. Re-Screen 2-5 years. NOTE: T-SCORE=SD OF THE YOUNG ADULT MEAN.
--- NOTE | 2020-02-26 10:06 | MM ---
Reason for exam: screening (asymptomatic). Last mammogram was performed 2 years and 5 months ago. History: Patient is postmenopausal. Took estrogen for 34 years beginning at age 34. Physical Findings: A clinical breast exam by your physician is recommended on an annual basis and results should be correlated with mammographic findings. MG 3D Screening Mammo W/Cad Bilateral CC and MLO view(s) were taken. Prior study comparison: September 13, 2017, bilateral MG screening mammo w CAD. August 25, 2016, bilateral MG 3d screening mammo w/cad. The breast tissue is almost entirely fat. No significant changes when compared with prior studies. ASSESSMENT: Benign, BI-RAD 2 RECOMMENDATION: Routine screening mammogram of both breasts in 1 year.
== END | disposition home or self-care (01) ==
LOC: RADMAMWWP 07:16
PROVIDERS: ATTEND Family Medicine
DX: Z12.31 Encounter for screening mammogram for malignant neoplasm of breast (principal); M85.80 Other specified disorders of bone density and structure, unspecified site; E78.5 Hyperlipidemia, unspecified; I48.91 Unspecified atrial fibrillation; R74.8 Abnormal levels of other serum enzymes; N18.9 Chronic kidney disease, unspecified; Z79.01 Long term (current) use of anticoagulants; Z79.899 Other long term (current) drug therapy
CPT/HCPCS: 77063; 77067; 77080; 80053; 80061; 82306; 82728; 82977; 83540; 83550; 83615; 83735; 83970; 84100; 84550; 85610

== ENCOUNTER 2022-02-01 05:44 | Day surgery (SDC) | payer MEDICARE, BC ==
[2022-01-31 09:41] VITALS: BMI 21.4
[2022-02-01] MEDS ORDERED: SODIUM CHLORIDE 0.9% 1,000 ML IV SCH (05:57)
[2022-02-01] MEDS ORDERED: SODIUM CHLORIDE 0.9% 500 ML 500 ML IV ONE (06:15)
[2022-02-01 06:27] VITALS: BP 157/80; PULSE 54; RESP 16; TEMP 98.4
[2022-02-01 06:37] LABS: INR 1.7 (<1.2); Prothrombin Time 17.1 sec (9.0-12.0)
[2022-02-01] MEDS ORDERED: IOPAMIDOL-370 50ML BTL INJ ONE (07:31)
--- NOTE | 2022-02-01 08:04 | P.EPPROC ---
- EP Procedure Note Electrophysiology Procedure Note: Diagnosis Intermittent spikes in the impedance on 2 occasions, on the atrial lead Patient has Sick Sinus Syndrome and paroxysmal atrial fibrillation Cinefluoroscopy of the leads Cinefluoroscopy of the atrial and ventricular leads were performed No fractures or breaks noted in the atrial lead Atrial lead is in a stable position in the in the right atrial appendage, RV lead implanted in the low RV septum Left upper extremity venogram 50 mL IV dye injected The extremely short stenosis at the axillary subclavian junction on the left side Innominate vein and SVC are patent Device interrogation Patient has a [employer] dual-chamber pacemaker P waves 3.2 mV, pacing impedance 595 ohms and pacing threshold 0.5 V at 0.4 ms R waves 15 mV, pacing impedance 589 ohms and pacing threshold 0.9 V at 0.4 ms There with impedance spikes on the atrial lead There is also evidence of nonsustained noise in the atrial channel intermittently It appears that as a result of the impedance spike the patient switched sensing configurations the unipolar mode in the atrial lead The signal artifact monitor and lead safety switch had been turned on and this resulted in a switch from bipolar to unipolar mode The atrial lead parameters have been reprogrammed to the bipolar mode It is possible that in the unipolar mode, ZEKE/ noise was detected The signal artifact monitor and the lead safety switch for the atrial lead was turned off I don't see any life-threatening issues as a result of this change This involves the atrial lead In addition the patient is not pacemaker dependent either Continue to monitor lead impedance and thresholds and sensing We will see her again in about 4-6 months
--- NOTE | 2022-02-01 08:08 | P.PN ---
Progress Note - Text Patient's INR is 1.7 I instructed her to take 5 mg of Coumadin today PT/INR checked in 1 week in the office Follow-up with me in about 2-3 months. Patient is intolerant of Zetia I asked her to stop sedated completely Pacemaker interrogation in 6 months
== END 2022-02-01 08:19 | disposition home or self-care (01) ==
LOC: CATHEP 05:44
PROVIDERS: ATTEND Internal Medicine Clinical Cardiac Electrophysiology
DX: Z95.810 Presence of automatic (implantable) cardiac defibrillator (principal); I49.5 Sick sinus syndrome; I48.0 Paroxysmal atrial fibrillation
CPT/HCPCS: 36005; 75820; 85610; Q9967

== ENCOUNTER → 2022-11-09 | Outpatient (CLI) | payer MEDICARE, BC ==
[2022-11-09 16:31] LABS: Chol/HDL Ratio 2.64 Ratio; LDL Cholesterol,Calculated 84.9 mg/dL (0.0-131.0)
== END | disposition home or self-care (01) ==
LOC: LABWHC1 10:25
PROVIDERS: ATTEND Internal Medicine Interventional Cardiology
DX: E78.3 Hyperchylomicronemia (principal)
CPT/HCPCS: 36415; 80061